=== PATIENT | female | born 1960 | race Caucasian/White ===

== ENCOUNTER → 2018-04-04 12:31 | Outpatient (CLI) | payer MEDICARE ==
[2018-04-04 14:22] LABS: NORMAL PLASMA / PROTHROMBIN 12.2 SECONDS (11.6-15.0)
[2018-04-06 13:21] LABS: FACTOR VIII - APTT 24.8 sec (22.9-30.2); FACTOR VIII ACTIVITY 218 % (57-163)
== END | disposition home or self-care (01) ==
LOC: D.LAB 12:31
PROVIDERS: Internal Medicine Hematology & Oncology
DX: D69.49 Other primary thrombocytopenia (principal)